=== PATIENT | male | born 1955 | race American Indian/Alaskan Native ===

== ENCOUNTER 2018-01-04 06:14 | Day surgery (SDC) | payer OTHER ==
[~2018-01-04 06:14] MED LIST: MARCAINE 0.25% INFILTRATI ONE
[2018-01-04] MEDS ORDERED: NACL BACTERIOSTATIC INFILTRATI ONE (06:39)
[2018-01-04] MEDS ORDERED: XYLOCAINE 1%/ EPI 1:100,000 INFILTRATI ONE ×2 (06:51→09:01)
[2018-01-04] MEDS ORDERED: MARCAINE 0.25% INFILTRATI ONE ×2 (06:51→09:35)
[2018-01-04] MEDS ORDERED: NACL 0.9% 1000 ML 1,000 ML IV SCH (07:34)
[2018-01-04] MEDS ORDERED: VERSED IV NR (07:34)
[2018-01-04] MEDS ORDERED: ZOFRAN IV PRN (07:44)
[2018-01-04] MEDS ORDERED: DILAUDID IV PRN (07:44)
--- NOTE | 2018-01-04 07:45 | Anesthesia Day of Surgery ---
Anesthesia Day of Surgery - Day of Surgery Patient Examined: Yes Patient H&P Reviewed: Yes Patient is NPO: Yes
--- NOTE | 2018-01-04 07:46 | Anesthesia Consultation ---
Anesthesia Consult and Med Hx Date of service: 01/04/18 - Airway Anesthetic Teeth Evaluation: Good ROM Head & Neck: Adequate Mental/Hyoid Distance: Adequate Mallampati Class: Class II Intubation Access Assessment: Probably Good - Pulmonary Exam CTA: Yes - Cardiac Exam Cardiac Exam: RRR - Pre-Operative Health Status ASA Pre-Surgery Classification: ASA3 Proposed Anesthetic Plan: General (Ga with LMA ok, GERD contolled) - Pulmonary Hx Smoking: Yes (STOPPED X 5 YRS, 1 PPD X 20 YRS) Hx Asthma: Yes (INHALER PRN) Hx Sleep Apnea: Yes (DX SLEEP APNEA WITH CPAP USE.) - Cardiovascular System Hx Hypertension: Yes (X 20 YRS. ) - Central Nervous System Hx Back Pain: Yes (BACK AND NECK PAIN) - Endocrine Hx Non-Insulin Dependent Diabetes: Yes - Other Systems Hx Alcohol Use: Yes (4beers/weekend) Hx Cancer: No
[2018-01-04] MEDS ORDERED: XYLOCAINE MPF 2% ONE (07:56)
[2018-01-04] MEDS ORDERED: SUBLIMAZE ONE (07:57)
[2018-01-04] MEDS ORDERED: ZOFRAN ONE (07:57)
[2018-01-04] MEDS ORDERED: REGLAN ONE (07:57)
[2018-01-04] MEDS ORDERED: DIPRIVAN 10 MG/ML IV ONE (07:57)
[2018-01-04] MEDS ORDERED: ANCEF/STERILE WATER 2 GM/20 ML IV NR (08:30)
[2018-01-04] MEDS ORDERED: LACTATED RINGERS 1,000 ML ONE (08:54)
[2018-01-04] MEDS ORDERED: NACL 0.9% IR ONE (09:02)
--- NOTE | 2018-01-04 09:59 | Short Stay Summary ---
Short Stay Documentation - Allergies and Medications Current Medications: Allergies shrimp Allergy (Verified 12/02/17 12:43) Swelling Home Medications Medication Instructions Recorded Confirmed Last Taken Type ALBUTEROL Inhaler [Proair] 2 puff IH QID PRN 12/02/17 01/04/18 3 Months Ago History ~10/04/17 Aspirin [Lo-Dose Aspirin EC] 81 mg PO DAILY 12/02/17 01/04/18 1 Week Ago History ~12/28/17 Carvedilol [Coreg] 6.25 mg PO BID 12/02/17 12/29/17 01/04/18 05:15 History Omeprazole 20 mg PO DAILY 12/02/17 12/29/17 01/03/18 History metFORMIN [Glucophage] 500 mg PO BID 12/02/17 12/29/17 01/03/18 History Celecoxib [Celebrex] 100 mg PO PRN PRN 12/07/17 12/29/17 01/03/18 History Felodipine [Felodipine ER] 10 mg PO QDAY 12/07/17 12/29/17 01/04/18 05:15 History Finasteride [Proscar] 5 mg PO QDAY 12/07/17 12/29/17 01/03/18 History Losartan/Hydrochlorothiazide 1 tab PO DAILY 12/07/17 12/29/17 01/04/18 05:15 History [Losartan-Hctz 100-25 mg Tab] Rosuvastatin Calcium [Crestor] 20 mg PO DAILY 12/07/17 12/29/17 01/03/18 History Tamsulosin [Flomax] 0.4 mg PO QDAY 12/07/17 12/29/17 01/03/18 History Zolpidem [Ambien] 10 mg PO QHS 12/07/17 12/29/17 01/03/18 History traMADol [Ultram] 50 mg PO Q4HR PRN 12/07/17 12/29/17 01/03/18 History Active Medications Cefazolin Sodium (Ancef/Sterile Water 2 Gm/20 Ml) 2 gm IV PREOP NR Stop: 01/04/18 12:00 Hydromorphone HCl (Dilaudid) 0.5 mg IV Q10MIN PRN PRN Reason: Pain , Severe (7-10) Stop: 01/04/18 13:00 Sodium Chloride (Nacl 0.9% 1000 Ml) 1,000 mls @ 75 mls/hr IV DIRECT GIN Last Admin: 01/04/18 07:05 Dose: 75 mls/hr Midazolam HCl (Versed) 2 mg IV ONCE NR Stop: 01/04/18 10:00 Last Admin: 01/04/18 07:36 Dose: 2 mg Ondansetron HCl (Zofran) 4 mg IV ONCE PRN PRN Reason: Nausea And Vomiting Stop: 01/04/18 10:00 Short Stay Discharge Plan Activity: no restrictions, advance as tolerated Weight Bearing Status: Weight Bear as Tolerated Diet: regular Wound: change dressing, per your surgeon's advice Special Instructions: physical therapy, occupational therapy Durable Medical Equipment Needed Upon Discharge: Cane Additional Instructions: follow DC instruction sheet PT starting tomorrow. Ice pacs prn pain meds prn continue home meds ROM exercises knee starting today Follow up with: CHETAN HARDING MD [Primary Care Provider] - 7 Days DIANA ALVES MD [Staff Physician] - 14 Days
--- NOTE | 2018-01-04 12:25 | Post Anesthesia Evaluation ---
- Post Anesthesia Evaluation Patient Participated: Yes Airway Patent: Yes Stable Respiratory Function: Yes Nausea/Vomiting: No Temp > 96.8F: Yes Pain Manageable: Yes Adequeate Hydration: Yes Anesthesia Complications: No
--- NOTE | 2018-01-04 16:30 | Operative Report ---
SURGEON: Alfredo Garcia MD. ONLINE MARKETING STRATEGIST: Kem Diaz, operative tech. PREOPERATIVE DIAGNOSES: 1. Painful left knee. 2. Osteoarthritis of the patellofemoral and the lateral compartment chondromalacia changes. 3. Painful left knee in the medial compartment. PROCEDURES PERFORMED: Left knee arthroscopy, debridement, partial synovectomy and tissue biopsy. BRIEF HISTORY: The patient is a 62-year-old man, who had a partial knee replacement of the left side, persistent painful and ended up having a repeat surgical procedure by Dr. Castellano and had open exploration polyethylene exchange and scar tissue release. The patient is still symptomatic. After listening to all risks, benefit, and alternatives, the patient elected for arthroscopy procedure, both diagnostic and possible therapeutic intervention. DETAILS OF THE OPERATIVE REPORT: The patient was taken to the operating, smooth and general endotracheal anesthesia, all the bony prominences were carefully padded. Left knee and left lower extremity prepped and draped in sterile fashion. The patient was given a 2 g Ancef half an hour before the procedure. The patient's leg was elevated, tourniquet inflated to 300 mmHg after the normal sterile painting and draping. The anterolateral portal was created. Arthroscope introduced. Diagnostic arthroscopy was performed. Findings noted below. Under direct visualization, an extensive debridement was performed. Arthroscopic finding lateral gutter was pristine with minimal signs of synovitis. In the retropatellar, there were grade 3 changes in about 50% to 60%, grade 4 osteoarthritic changes in the retropatellar area of about 20% to 30%, grade 3 changes in about 40% to 50%. Trochlea grade 3 changes allowed. There was some 10 to 20% area of grade 4 may be. In the medial compartment, there was pseudo meniscus type of tissue, impinging between the polyethylene liner and the femoral competent throughout. Extensive scar tissue formation on the medial side as well. There is a fibrous tissue in the anterior margin of the anterior medial and posterior margin with pseudo meniscus type of appearance in the medial compartment in a circular fashion all around the rim of the polyethylene and covering the whole rim in the some surface of the polyethylene. The chronic partial tear ACL was intact. PCL was intact. Retropatellar area has signs of thickening and soft tissue formation. Lateral compartment and lateral tibial plateau had some grade 2+ changes throughout with some areas of grade 3 on the lateral tibial plateau. The lateral meniscus was intact. Femoral condyle fairly preserved, grade 2 changes throughout. Using arthroscopic shaver, 3.5 and low profile and protecting the implant and the poly liner, the extensive debridement of the pseudo meniscus type of tissue all around the medial side and the anterior and the posterolateral side of the medial compartment was performed. There was a meniscus type of tissue impinging in between the implant and the polyethylene, which was also debrided off. The wand was used to cauterize the debrided surface as well. Once necessary debridement of the pseudo meniscus type of tissue and scar tissue was performed, the knee was moved through range of motion and there was no soft tissue getting caught in between the implant and the polyethylene, which was seen before the debridement. Arthritis, fraying of the cartilage in the retropatellar area was seen and necessary minimal chondroplasty was performed. The synovium in the retropatellar area was also debrided and partial synovectomy type of the procedure was performed. Extensive scar tissue and adhesions were on the medial side were also removed. Care was taken to protect the medial collateral and not protect the medial collateral all times. We had no instability during the procedure. Necessary pictures were taken throughout the procedure. The fluid was evacuated. Arthroscope was removed. Portal sites closed with 3-0 nylon interrupted sutures of 0.25% Marcaine injected into the portal sites, 3 mL each portal bed and dressing was done with Xeroform, 4 x 4s, ABD, cast padding and Servando wrap. The patient tolerated the procedure very well, shifted to recovery room in stable condition. Sponge and needle count was correct. JOB# [id number] SK/LUDIN
[2018-01-04 18:20] VITALS: BP 117/73
== END 2018-01-04 11:55 | disposition home or self-care (01) ==
LOC: OR 06:14 → EDSTATUS 08:00 → OR 11:55
PROVIDERS: ATTEND Orthopaedic Surgery
DX: M17.12 Unilateral primary osteoarthritis, left knee (principal); I10 Essential (primary) hypertension; G47.30 Sleep apnea, unspecified; J45.909 Unspecified asthma, uncomplicated; K21.9 Gastro-esophageal reflux disease without esophagitis; E11.9 Type 2 diabetes mellitus without complications; E78.00 Pure hypercholesterolemia, unspecified; E66.9 Obesity, unspecified; Z68.31 Body mass index [BMI] 31.0-31.9, adult; Z79.899 Other long term (current) drug therapy; Z79.82 Long term (current) use of aspirin; Z79.84 Long term (current) use of oral hypoglycemic drugs; Z91.013 Allergy to seafood; Z88.8 Allergy status to other drugs, medicaments and biological substances; Z72.89 Other problems related to lifestyle; Z96.652 Presence of left artificial knee joint; Z90.49 Acquired absence of other specified parts of digestive tract; Z87.891 Personal history of nicotine dependence
CPT/HCPCS: 29875; 36415; 82962; 84132; 88305; A4217; J0690; J1170; J2250; J2405; J2704; J2765; J3010; J7030; J7120